=== PATIENT | female | born 1965 | race Caucasian/White ===

== ENCOUNTER 2021-05-14 07:15 | Outpatient (REF) | payer OTHER, SELFPAY ==
--- NOTE | ~2021-05-14 | CT_ITS ---
EXAMINATION: CT CHEST WITH CONTRAST CLINICAL INFORMATION: 56-year-old female with history of small cell lung carcinoma. COMPARISON: Chest CT from 09/16/2020 TECHNIQUE: Multidetector volumetric CT imaging of the chest was obtained after the administration of 65 mL of Omnipaque 350 intravenous contrast without immediate adverse reactions. Axial MIP volume rendering provided. Sagittal and coronal reformatted images were obtained. This CT examination was performed using dose optimization techniques as appropriate, variously including the following: *Automated exposure control *Adjustment of mA and/or kV according to patient size (this includes techniques or standardized protocols for targeted exams where dose is matched to indication/reason for exam; i.e. extremities or head) *Use of iterative reconstruction technique DLP: 156 mGy-cm FINDINGS: LUNGS AND PLEURA: Status post right upper lobectomy. No suspicious tissue thickening at the bronchial stump or along the major fissure. No new pulmonary nodule, pleural effusion or pneumothorax. Small, 0.2 cm noncalcified nodule of the left upper lobe along the major fissure is unchanged (image 54, series 5). Based on Fleischner Society guidelines, chest CT follow-up is not recommended in a low-risk patient and is considered optional at 12 months in a high risk patient. Mild linear opacity of scar or atelectasis along the suture line in the medial right upper hemithorax. Minimal atelectasis in medial aspect of each lower lobe adjacent to the hiatal hernia. CARDIOVASCULAR AND MEDIASTINUM: The heart size is normal. No pericardial effusion. Pulmonary arteries and thoracic aorta are unremarkable. No mediastinal mass. Large hiatal hernia of the stomach. The thyroid gland is unremarkable. LYMPHATICS: No axillary or internal mammary lymphadenopathy. No pathologic sized mediastinal or hilar lymph nodes. UPPER ABDOMEN: Liver is diffusely hypodense compared to the spleen on these contrast-enhanced images, suggestive of steatosis. Gallbladder is surgically absent. Adrenal glands are normal. No evidence of metastatic disease within the examined upper abdomen. SKELETAL AND CHEST WALL: Multilevel discovertebral degenerative change of the visualized lower cervical and thoracic spine. No suspicious osseous lesions. CT/CT chest w con IMPRESSION: * No evidence of recurrent carcinoma, status post right upper lobectomy. No new pulmonary nodule, lymphadenopathy or pleural effusion. * Diffuse hepatic steatosis. * Large hiatal hernia.
[2021-05-14] MEDS: iohexoL 350 MG/ML 100 ML INFUS..BTL IV (08:34)
== END 2021-05-14 07:16 | disposition home or self-care (01) ==
LOC: HO.CT 07:15
PROVIDERS: Visit Provider Internal Medicine Hematology & Oncology
DX: C34.11 Malignant neoplasm of upper lobe, right bronchus or lung (principal)
CPT/HCPCS: 71260; Q9967